=== PATIENT | female | born 1960 | race Caucasian/White ===

== ENCOUNTER 2020-12-27 08:22 | Outpatient (REF) | payer OTHER, SELFPAY ==
--- NOTE | 2020-12-27 17:26 | MHC.AU.ANR ---
Adult Audiological Evaluation Date of Visit: 12/27/20 Reason for Appointment: Audiological evaluation due to concern for tinnitus. Patient reports sudden onset tinnitus in the left ear only ~3 months ago. She states that has been constant since that time and sounds like cicadas. She denies any changes to her medical history at that time, but does note that she got the COVID-19 vaccine on August 27, 2020. She notes that she has some difficulty hearing in the presence of background noise, but overall feels she hears well. Does patient feel they have a hearing loss?: No Has hearing been tested previously?: Yes Previous Hearing Test Results: Tested in [place] 10+ years ago and told she has normal hearing. Results not available for review. Hearing Handicap Inventory: HHIE SCORE: 2 Based on HHIE score, patient has: No perceived hearing handicap Ear History: Family History of Hearing Loss?: Yes: Parents Bothersome Tinnitus/Ringing/Noises in Ears: Left Ear Medical History: Medical History (Other): Appendectomy 1979, fissure repair 1983, gallbladder removal 1992, rhinoplasty 1996, bariatric surgery 2010 Otoscopy: Right Ear: Unremarkable Left Ear: Unremarkable Tympanometry: Tympanometry performed due to: To assess integrity of the middle ear system Right Ear: Normal Middle Ear System (Type A) Left Ear: Normal Middle Ear System (Type A) Hearing Evaluation: Transducer(s) Used: Insert Earphones, Bone Conduction Method: Conventional Audiometry Stimuli Used: Pure Tones Right Ear: Description of Hearing: Normal hearing from 250-3000 Hz, sloping to a mild sensorineural hearing loss at 4000 Hz, and rising to normal hearing 6939-9199 Hz. Left Ear: Description of Hearing: Normal hearing from 250-6000 Hz, sloping to a mild hearing loss at 8000 Hz. Speech Recognition Threshold (SRT): Method Used: Monitored Live Voice Stimuli Used: Spondee Words Right Ear: 15 dBHL Left Ear: 10 dBHL Word Discrimination: Method: Recorded Lists Word Lists Used: NU-6 Right Ear: 100% at 55 dBHL Left Ear: 100% at 50 dBHL QuickSIN: 0 dB SNR loss when presented binaurally at 60 dBHL, indicating normal speech in noise understanding abilities. Recommendations: Audiological re-evaluation if changes are noted. Audiological re-evaluation in one year. Amplification is not warranted at this time. Diagnosis: Primary Diagnosis: H90.3 Bilateral Sensorineural Hearing Loss Secondary Diagnosis: H93.12 Tinnitus, Left Ear Services Performed: Services Performed: Comprehensive Audiological Evaluation (CPT 60487) Tympanometry (CPT 25577) Unlisted Otorhinolaryngological Service or Procedure (CPT 59740) Signature: Provider: Reba Membreno, CCC-A
== END 2020-12-27 08:23 | disposition home or self-care (01) ==
LOC: HO.SH 08:22
PROVIDERS: Visit Provider Family Medicine
DX: H90.3 Sensorineural hearing loss, bilateral (principal); H93.12 Tinnitus, left ear
CPT/HCPCS: 92557; 92567; 92700

== ENCOUNTER 2021-05-18 19:40 | Inpatient (IN) | payer OTHER, SELFPAY ==
[2021-05-18 20:08] VITALS: BP 173/101; PULSE 87; RESP 20; TEMP 36.3; O2SAT 100; BMI 30.6
--- NOTE | 2021-05-18 20:35 | ECG_ITS ---
Test Reason : overdose Blood Pressure : / mmHG Vent. Rate : 094 BPM Atrial Rate : 094 BPM P-R Int : 162 ms QRS Dur : 088 ms QT Int : 320 ms P-R-T Axes : 025 012 -79 degrees QTc Int : 400 ms Normal sinus rhythm Cannot rule out Anteroseptal infarct , age undetermined Abnormal ECG No previous ECGs available Referred By: Connor Petersen Electronically Signed By:Colt Walden
--- NOTE | 2021-05-18 20:52 | MHC.CARE ---
CARE Team is aware to pt ingested overdose as a suicide attempt. Consult CARE Team when pt is medically cleared for assessment.
[2021-05-18] MEDS: Activated charcoaL 50 GM/240 ML ORAL.SUSP PO (20:55)
[2021-05-18] MEDS: 0.9 % Sodium Chloride 1,000 ML 999 ML IV ×3 (20:58→23:05)
[2021-05-18 21:02] VITALS: BP 149/89; PULSE 97; RESP 16; TEMP 37.1
[2021-05-18 21:14] LABS: MANUAL DIFF FLAG NO
[2021-05-18 21:17] LABS: Basophils Percent Auto 0.3 % (0-2); Eosinophils Absolute Auto 0.1 X10*3/uL (0.0-0.4); Eosinophils Percent Auto 1.2 % (0-4); Hematocrit 39.5 % (37.0-47.0); Hemoglobin 13.3 g/dl (12.0-16.0); Imm Gran Abs Auto 0.02 X10*3/uL (0.00-0.03); Imm Gran Pct Auto 0.3 % (0.0-0.4); Lymphocytes Absolute Auto 0.6 X10*3/uL (1.2-4.9); Lymphocytes Percent Auto 9.6 % (20-40); Mean Corpuscular HGB Conc 33.7 g/dl (31.0-35.0); Mean Corpuscular Hemoglobin 31.3 pg (27.0-33.0); Mean Corpuscular Volume 92.9 fL (80.0-98.0); Mean Platelet Volume 10.5 fL (9.4-12.3); Monocytes Absolute Auto 0.3 X10*3/uL (0.1-1.2); Monocytes Percent Auto 5.2 % (2-11); Neutrophils Absolute Auto 5.5 x10*3/uL (2.0-8.3); Neutrophils Percent Auto 83.4 % (45-73); Platelet Count 165 X10*3/uL (160-400); Red Blood Count 4.25 X10*6/uL (4.20-5.50); Red Cell Distribution Width 12.6 % (11.0-16.0); White Blood Count 6.6 X10*3/uL (4.8-10.8)
[2021-05-18 21:24] LABS: INTERNATIONAL NORM RATIO 0.9 (0.9-1.1); Prothrombin Time 10.2 SEC (9.9-13.0)
[2021-05-18 21:26] LABS: Partial Thromboplastin Time 32.7 SEC (24.1-38.0)
[2021-05-18 21:29] LABS: Ethanol 161 mg/dL
[2021-05-18 21:38] LABS: Alanine Aminotransferase 19 U/L (0-31); Albumin Level 4.2 g/dL (3.5-5.0); Alkaline Phosphatase 76 U/L (39-117); Anion Gap 15 (12-20); Aspartate Amino Transferase 32 U/L (5-31); Bilirubin Direct 0.2 mg/dL (0.0-0.5); Bilirubin Total 0.2 mg/dL (0.0-1.0); Blood Urea Nitrogen 14 mg/dL (9-16); Carbon Dioxide 22 mmol/L (22-29); Chloride 108 mmol/L (96-108); Creatinine Clr Calc Pharmacy 83.4; Estimated Glomerular Filt Rate > 60; Glucose Random 105 mg/dL (60-115); Potassium 4.9 mmol/L (3.3-5.1); Sodium 140 mmol/L (135-145); Total Protein 7.2 g/dL (6.5-8.0)
[2021-05-18 21:57] LABS: HCG Quantitative 4 mIU/mL
[2021-05-18 22:03] LABS: Amphetamine Screen Urine Not Detected (Not Detect); Barbiturates, Urine Not Detected (Not Detect); Benzodiazepines Screen Urine Not Detected (Not Detect); Cannabinoid Screen Urine Not Detected (Not Detect); Cocaine Screen Urine Not Detected (Not Detect); Fentanyl, urine Not Detected (Not Detect); Opiate Screen Urine Not Detected (Not Detect); Phencyclidine Screen Urine Not Detected (Not Detect)
--- NOTE | 2021-05-18 22:07 | ED_ITS ---
HPI - Overdose General Chief Complaint: Overdose Stated Complaint: SI w/ OD attempt Time Seen by Provider: 05/18/21 22:46 Source: patient Mode of arrival: ambulatory Limitations: no limitations History of Present Illness HPI Narrative: 60-year-old female presents to ED for suicide attempt with 30 pills 20 mg of paroxetine. patient states this occurred 45 minutes before coming to the ED. Patient states she was trying to kill herself due to depression. patient complaint is only nausea. Related Data Allergies Allergy/AdvReac Type Severity Reaction Status Date / Time mold Allergy Unknown Verified 05/18/21 20:08 Review of Systems Review of Systems: Yes all other systems are reviewed and are negative Constitutional: Constitutional: Reports as per HPI and Reports no additional constitutional complaints Eyes: Eyes: Reports as per HPI and Reports no additional eye complaints ENT: Reports system reviewed and no additional complaints, except as documented and Reports as per HPI Cardiovascular: Cardiovascular: Reports as per HPI and Reports no additional cardiovascular complaints Respiratory: Respiratory: Reports as per HPI and Reports no additional respiratory complaints Gastrointestinal: Gastrointestinal: Reports as per HPI and Reports no additional gastrointestinal complaints Genitourinary: Genitourinary: Reports no additional female genitourinary complaints and Reports as per HPI Musculoskeletal: Musculoskeletal: Reports no additional musculoskeletal co mplaints and Reports as per HPI Integumentary/Breasts: Skin/Breast: Reports system reviewed and no additional complaints, except as docu and Reports as per HPI Neurologic: Reports system reviewed and no additional complaints, except as documented and Reports as per HPI Psychiatric: Psychiatric: Reports no additional psychiatric complaints and Reports as per HPI Comments: overdose. [facility]. [facility] Social History Social History Advance Directives: No Advance Directives Information Provided: Yes Patient : No Physical Exam Vital Signs: Vital Signs: Last Vital Signs Temp 98.2 F 05/18/21 23:45 Pulse 93 05/19/21 01:57 Resp 16 05/19/21 01:57 BP 165/95 H 05/19/21 01:57 Pulse Ox 98 05/19/21 01:57 BMI result Body Mass Index 30.6 Const: General: cooperative, healthy appearing, comfortable, no acute distres s, well developed, alert, awake and Physically active Orientation/consciousness: patient oriented x3 HENMT: Head: Yes normal to inspection, Yes No palpable skull fracture present, Yes normocephalic and Yes atraumatic Eyes: General: appearance normal, both eyes and all related structures Neck: Neck: Yes normal visual inspection, Yes full ROM, Yes no lymphadenopathy, Yes no meningeal signs, Yes trachea midline, Yes supple, No anterior neck swelling and No tender Chest: Chest palpation & inspection: normal inspection of the chest and normal palpation of entire chest wall Resp: Effort & Inspection: normal respiratory effort and able to speak in complete sentences Auscultation: clear to auscultation bilaterally Cardio: Jugular venous distension: no JVD Heart sounds: S1 normal heart sound present and S2 normal heart sound present GI: Inspection: Yes normal to inspection and No abdominal wall ecchymosis Palpation (GI): Soft to palpation, not firm, nontender, no guarding and not rigid : General: No CVA tenderness and Yes no CVA tenderness Back/Spine/Pelvis: Back: no CVA tenderness, No CVA tenderness and No back tenderness Neuro: General: patient oriented x3, gait normal, no meningeal signs and CN's II-XI intact bilaterally Cranial nerves: Yes CN's II-XII intact bilaterally Extrem: General: Yes normal to inspection and Yes full ROM Psych: Appearance: grossly normal, well kempt and not disheveled Course Course Course Narrative: Patient presently vital signs stable. Patient given charcoal immediately labs EKG ordered fluids ordered. Will contact poison Control. Reevaluation(s) Reevaluation #1: Nurse Tirado spoke with poison Control who states patient EKG should be repeated after 4 hours and patient should be watched in the ED for at least 8 hours since ingestion hours and if everything comes back normal patient could be cleared medically. Time: 23:54 Reevaluation #2: Spoke with poison Control and they were informed patient repeat labs and EKG. They states patient should be evaluated until 04:00am and then patient will be medically cleared. Crisis management consult placed. Patient is alert oriented x3 Time: 02:06 MDM - Overdose MDM Narrative Medical decision making narrative: Overdose Lab Data Result diagrams: 05/18/21 21:10 05/19/21 01:12 Labs: Lab Results 05/18/21 05/18/21 05/18/21 Range/Units 21:10 21:10 21:10 WBC 6.6 (4.8-10.8) X10*3/uL RBC 4.25 (4.20-5.50) X10*6/uL Hgb 13.3 (12.0-16.0) g/dl Hct 39.5 (37.0-47.0) % MCV 92.9 (80.0-98.0) fL MCH 31.3 (27.0-33.0) pg MCHC 33.7 (31.0-35.0) g/dl RDW 12.6 (11.0-16.0) % Plt Count 165 (160-400) X10*3/uL MPV 10.5 (9.4-12.3) fL Immature Gran % (Auto) 0.3 (0.0-0.4) % Neut % (Auto) 83.4 H (45-73) % Lymph % (Auto) 9.6 L (20-40) % Clare % (Auto) 5.2 (2-11) % Eos % (Auto) 1.2 (0-4) % Baso % (Auto) 0.3 (0-2) % Lymph # (Auto) 0.6 L (1.2-4.9) X10*3/uL Clare # (Auto) 0.3 (0.1-1.2) X10*3/uL Eos # (Auto) 0.1 (0.0-0.4) X10*3/uL Baso # (Auto) 0.0 (0.0-0.2) X10*3/uL Abs Immat Gran (auto) 0.02 (0.00-0.03) X10*3/uL Absolute Neuts (auto) 5.5 (2.0-8.3) x10*3/uL Absolute Nucleated RBC 0.000 (0.0-0.012) X10*3/uL Nucleated RBC % (auto) 0.0 (0.0-0.2) /100WBC PT 10.2 (9.9-13.0) SEC INR 0.9 (0.9-1.1) APTT 32.7 (24.1-38.0) SEC Sodium 140 (135-145) mmol/L Potassium 4.9 (3.3-5.1) mmol/L Chloride 108 (96-108) mmol/L Carbon Dioxide 22 (22-29) mmol/L Anion Gap 15 (12-20) BUN 14 (9-16) mg/dL Creatinine 0.83 (0.5-1.4) mg/dL Estim Creat Clear Calc 83.4 Estimated GFR > 60 Random Glucose 105 (60-115) mg/dL Calcium 9.0 (8.4-10.2) mg/dL Magnesium (1.6-2.6) mg/dL Total Bilirubin 0.2 (0.0-1.0) mg/dL Direct Bilirubin 0.2 (0.0-0.5) mg/dL AST 32 H (5-31) U/L ALT 19 (0-31) U/L Alkaline Phosphatase 76 (39-117) U/L Total Protein 7.2 (6.5-8.0) g/dL Albumin 4.2 (3.5-5.0) g/dL Beta HCG, Quant 4 mIU/mL Salicylates < 5.0 L (15-30) mg/dL Urine Opiates Screen (Not Detect) Urine Fentanyl Screen (Not Detect) Acetaminophen < 1 (<30) mcg/mL Ur Barbiturates Screen (Not Detect) Ur Phencyclidine Scrn (Not Detect) Ur Amphetamines Screen (Not Detect) U Benzodiazepines Scrn (Not Detect) Urine Cocaine Screen (Not Detect) U Marijuana (THC) Screen (Not Detect) Ethyl Alcohol mg/dL 05/18/21 05/18/21 05/19/21 Range/Units 21:10 21:38 01:12 WBC (4.8-10.8) X10*3/uL RBC (4.20-5.50) X10*6/uL Hgb (12.0-16.0) g/dl Hct (37.0-47.0) % MCV (80.0-98.0) fL MCH (27.0-33.0) pg MCHC (31.0-35.0) g/dl RDW (11.0-16.0) % Plt Count (160-400) X10*3/uL MPV (9.4-12.3) fL Immature Gran % (Auto) (0.0-0.4) % Neut % (Auto) (45-73) % Lymph % (Auto) (20-40) % Clare % (Auto) (2-11) % Eos % (Auto) (0-4) % Baso % (Auto) (0-2) % Lymph # (Auto) (1.2-4.9) X10*3/uL Clare # (Auto) (0.1-1.2) X10*3/uL Eos # (Auto) (0.0-0.4) X10*3/uL Baso # (Auto) (0.0-0.2) X10*3/uL Abs Immat Gran (auto) (0.00-0.03) X10*3/uL Absolute Neuts (auto) (2.0-8.3) x10*3/uL Absolute Nucleated RBC (0.0-0.012) X10*3/uL Nucleated RBC % (auto) (0.0-0.2) /100WBC PT 10.7 (9.9-13.0) SEC INR 0.9 (0.9-1.1) APTT 31.3 (24.1-38.0) SEC Sodium (135-145) mmol/L Potassium (3.3-5.1) mmol/L Chloride (96-108) mmol/L Carbon Dioxide (22-29) mmol/L Anion Gap (12-20) BUN (9-16) mg/dL Creatinine (0.5-1.4) mg/dL Estim Creat Clear Calc Estimated GFR Random Glucose (60-115) mg/dL Calcium (8.4-10.2) mg/dL Magnesium (1.6-2.6) mg/dL Total Bilirubin (0.0-1.0) mg/dL Direct Bilirubin (0.0-0.5) mg/dL AST (5-31) U/L ALT (0-31) U/L Alkaline Phosphatase (39-117) U/L Total Protein (6.5-8.0) g/dL Albumin (3.5-5.0) g/dL Beta HCG, Quant mIU/mL Salicylates (15-30) mg/dL Urine Opiates Screen Not Detected (Not Detect) Urine Fentanyl Screen Not Detected (Not Detect) Acetaminophen (<30) mcg/mL Ur Barbiturates Screen Not Detected (Not Detect) Ur Phencyclidine Scrn Not Detected (Not Detect) Ur Amphetamines Screen Not Detected (Not Detect) U Benzodiazepines Scrn Not Detected (Not Detect) Urine Cocaine Screen Not Detected (Not Detect) U Marijuana (THC) Screen Not Detected (Not Detect) Ethyl Alcohol 161 mg/dL 05/19/21 05/19/21 Range/Units 01:12 01:12 WBC (4.8-10.8) X10*3/uL RBC (4.20-5.50) X10*6/uL Hgb (12.0-16.0) g/dl Hct (37.0-47.0) % MCV (80.0-98.0) fL MCH (27.0-33.0) pg MCHC (31.0-35.0) g/dl RDW (11.0-16.0) % Plt Count (160-400) X10*3/uL MPV (9.4-12.3) fL Immature Gran % (Auto) (0.0-0.4) % Neut % (Auto) (45-73) % Lymph % (Auto) (20-40) % Clare % (Auto) (2-11) % Eos % (Auto) (0-4) % Baso % (Auto) (0-2) % Lymph # (Auto) (1.2-4.9) X10*3/uL Clare # (Auto) (0.1-1.2) X10*3/uL Eos # (Auto) (0.0-0.4) X10*3/uL Baso # (Auto) (0.0-0.2) X10*3/uL Abs Immat Gran (auto) (0.00-0.03) X10*3/uL Absolute Neuts (auto) (2.0-8.3) x10*3/uL Absolute Nucleated RBC (0.0-0.012) X10*3/uL Nucleated RBC % (auto) (0.0-0.2) /100WBC PT (9.9-13.0) SEC INR (0.9-1.1) APTT (24.1-38.0) SEC Sodium 141 (135-145) mmol/L Potassium 3.9 D (3.3-5.1) mmol/L Chloride 112 H (96-108) mmol/L Carbon Dioxide 19 L (22-29) mmol/L Anion Gap 14 (12-20) BUN 11 (9-16) mg/dL Creatinine 0.72 (0.5-1.4) mg/dL Estim Creat Clear Calc 96.1 Estimated GFR > 60 Random Glucose 116 H (60-115) mg/dL Calcium 7.9 L D (8.4-10.2) mg/dL Magnesium 1.8 (1.6-2.6) mg/dL Total Bilirubin 0.4 (0.0-1.0) mg/dL Direct Bilirubin (0.0-0.5) mg/dL AST 28 (5-31) U/L ALT 18 (0-31) U/L Alkaline Phosphatase 66 (39-117) U/L Total Protein 6.2 L (6.5-8.0) g/dL Albumin 3.8 (3.5-5.0) g/dL Beta HCG, Quant mIU/mL Salicylates < 5.0 L (15-30) mg/dL Urine Opiates Screen (Not Detect) Urine Fentanyl Screen (Not Detect) Acetaminophen < 1 (<30) mcg/mL Ur Barbiturates Screen (Not Detect) Ur Phencyclidine Scrn (Not Detect) Ur Amphetamines Screen (Not Detect) U Benzodiazepines Scrn (Not Detect) Urine Cocaine Screen (Not Detect) U Marijuana (THC) Screen (Not Detect) Ethyl Alcohol 49 mg/dL ECG Data Interpretation: EKG 1: Normal sinus rhythm. Reticular 94. WA interval 162. QRS 88. QTC 400. Negative STEMI. EKG 2; normal sinus rhythm. Ventricular rate 92. Parents till 154. QRS 92. QTC 460. Discharge Plan Discharge Clinical Impression: Drug overdose Patient Disposition: Still a Patient
[2021-05-18 22:52] LABS: Acetaminophen LAB < 1 mcg/mL (<30); Salicylate < 5.0 mg/dL (15-30)
[2021-05-18 23:45] VITALS: BP 149/89; PULSE 93; RESP 16; TEMP 36.8; O2SAT 98
--- NOTE | 2021-05-19 00:39 | ECG_ITS ---
Test Reason : MEDICAL CLEARENCE Blood Pressure : / mmHG Vent. Rate : 091 BPM Atrial Rate : 091 BPM P-R Int : 148 ms QRS Dur : 090 ms QT Int : 394 ms P-R-T Axes : 029 015 062 degrees QTc Int : 484 ms Normal sinus rhythm Septal infarct , age undetermined Abnormal ECG No previous ECGs available Referred By: Connor Petersen Electronically Signed By:REBECCA MARTINEZ
[2021-05-19 01:28] LABS: INTERNATIONAL NORM RATIO 0.9 (0.9-1.1); Prothrombin Time 10.7 SEC (9.9-13.0)
[2021-05-19 01:31] LABS: Partial Thromboplastin Time 31.3 SEC (24.1-38.0)
[2021-05-19 01:36] LABS: Ethanol 49 mg/dL
[2021-05-19 01:48] LABS: Acetaminophen LAB < 1 mcg/mL (<30); Alanine Aminotransferase 18 U/L (0-31); Albumin Level 3.8 g/dL (3.5-5.0); Alkaline Phosphatase 66 U/L (39-117); Anion Gap 14 (12-20); Aspartate Amino Transferase 28 U/L (5-31); Bilirubin Total 0.4 mg/dL (0.0-1.0); Blood Urea Nitrogen 11 mg/dL (9-16); Calcium 7.9 mg/dL (8.4-10.2); Carbon Dioxide 19 mmol/L (22-29); Chloride 112 mmol/L (96-108); Creatinine Clr Calc Pharmacy 96.1; Estimated Glomerular Filt Rate > 60; Glucose Random 116 mg/dL (60-115); Magnesium 1.8 mg/dL (1.6-2.6); Potassium 3.9 mmol/L (3.3-5.1); Salicylate < 5.0 mg/dL (15-30); Sodium 141 mmol/L (135-145); Total Protein 6.2 g/dL (6.5-8.0)
[2021-05-19 01:57] VITALS: BP 165/95; PULSE 93; RESP 16; O2SAT 98
[2021-05-19 03:08] VITALS: BP 159/83; PULSE 93; RESP 15; O2SAT 97
[2021-05-19 03:26] LABS: COVID-19 Test Negative (Negative); IDNOW Serial# 55D5AD1C
[2021-05-19 03:42] VITALS: PULSE 87; TEMP 37.1
--- NOTE | 2021-05-19 05:27 | PC.NURSE ---
Patient was transferred to ED POD at 0330, gait unsteady but secured, slept adequate, asymptomatic of Seratonin syndrome at this time, VSS, per report patient was cleared by poison control, care team consult ordered pending screening in the morning, alert and oriented x 4, behavior appropriate and cooperative, med rec completed but on hold, will continue to monitor.
--- NOTE | 2021-05-19 08:49 | PC.NURSE ---
alert, speech clear, steady gait, aware of care plan and pending CARE team eval, pleasant and cooperative,
[2021-05-19 15:20] VITALS: BP 155/70; PULSE 82; RESP 20; TEMP 36.9; O2SAT 99
--- NOTE | 2021-05-19 18:54 | MHC.CARE ---
Pt evaluated by CARE, disposition is for inpt psychiatric admission. Sect 12a signed and in pt's chart. She will board in the [facility] pod pending facility placement.
[2021-05-20 03:34] VITALS: BP 166/82; PULSE 78; RESP 18; TEMP 37.6; O2SAT 98
--- NOTE | 2021-05-20 05:46 | PC.NURSE ---
Patient slept through the night, no distress observed/reported, behavior appropriate, appetite adequate, patient's disposition per Care Team is section 12 inpatient bed search, no update on bed search at this time, will continue to monitor.
--- NOTE | 2021-05-20 08:20 | PC.NURSE ---
pt alert resting quietly in bed, breakfast given. no complaints. will continue to monitor.
--- NOTE | 2021-05-20 12:40 | PC.NURSE ---
pt up to use restroom, requested remote to change tv in her room, pt currently in bed resting quietly. will continue to monitor.
[2021-05-20 16:54] VITALS: BP 153/80; PULSE 75; RESP 18; TEMP 36.3; O2SAT 98
[2021-05-20 23:16] VITALS: BP 159/85; PULSE 71; RESP 16; TEMP 37.1; O2SAT 100
--- NOTE | 2021-05-21 05:15 | PC.NURSE ---
Patient slept intermittently, woke up few times by unit commotion, patient not happy with loud noises requested for discharge, behavior appropriate, patient's disposition is section 12 inpatient bed search per care team, will continue to monitor.
--- NOTE | 2021-05-21 07:13 | PC.NURSE ---
patient appears to remain asleep at present respirations are even and unlabored patient appears in no distress
[2021-05-21 11:58] VITALS: BP 142/90; PULSE 82; TEMP 37.3; O2SAT 100
--- NOTE | 2021-05-21 16:39 | HO.PSYADMNOT ---
Documented by User: Monet Carrasquillo NP 05/23/21 21:58 HPI Date of Service: 05/21/21 Chief Complaint: SI Sources of Information: patient interviewed, chart reviewed and crisis/core team assessment reviewed HPI Subjective Notes: Gomez Warning and Conditional Voluntary Healthcare Proxy: No Guardianship: No Medical Problems Affecting Mental Status: No Narrative: Pt is a 60 y.o. female who presented to [facility] 05/18/21 due to suicide attempt, took 30 pills of 20 mg of paroxetine 45 minutes before coming to the ED. 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 Her sister, niece, and their two dogs are visiting her and her mother in their small condo. Pt also disclosed increased alcohol use over the pandemic and was inebriated at the time of the OD. BAL 161 on arrival to ED. Tox screen is otherwise negative. Per CARE team eval, prior to the OD, pt had a negative interaction with her niece while they were cleaning up after dinner, which resulted in her niece snapping at her. She reported that she went into her room, saw the bottle of her medications and impulsively took them.? I evaluated the pt this evening and upon interview she reports she overdosed after ?a long day,? had been cooking and said she was arguing with her sister and her niece told her ?you dont talk to my mother in that tone of voice.? Says she remembers taking the paxil but her mom says she also left a suicide note; pt states she has ?no recollection of putting a purposeful thought to anything in that moment, i?m so surprised I did what I did.? Denies hx of previous self harm behaviors or suicide attempts. Pt reports some belt weaver fatigue and has a ?general angst about my own future,? as she says her peers all started announcing their retirements and she is ?afraid for my own future.? Says she has some financial stress. Also reports feeling ?concerned with the country? and worries that ?politicians tread on the basic foundations of our country, it?s frightening to me, all this stuff built up.? Sleep has been poor, attributes this to anxiety, sleeps 4-6 hours at night, energy is ?okay? during the day, feels ?drained'' at night. Reports long hx of difficulty with sleep, ?I have a hard time turning my brain off at night.? Appetite is okay. Denies hx of impulsivity or risk taking behaviors. No hx of manic or hypomanic episodes endorsed.?No psychotic sx. Currently denies SI/SIB upon inquiry and says she feels safe, remorseful for her overdose. Denies issues with anger or agitation. Past Psychiatric History: -No hx of previous psych admissions. Remote hx of OP counseling in 1980 and again in 2005 to process the grief from failed adoption (did this for 9 mo, helpful). -PCP prescribes paxil x 18 yrs for PMDD sx (?mood swings and perimenopause?). Medical Evaluation Reviewed: Yes [facility] Surgical History (Updated 05/22/21 @ 03:32 by Sidra Krishna RN) H/O gastric bypass Narrative: -Hx gastric bypass 10 years ago Family History: -Maternal/ paternal family hx of anxiety and depression. Sister- attempted suicide in 1979 when the pt was in her freshman year of college, alcohol use disorder, PTSD. Dad- ?crippling? anxiety and depression. Maternal uncle and and paternal aunt completed suicide. 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 Pt was raised by her mother and father with her older brother and younger sister. Her father was Sinhala and her mother is [place]. Pt also took care of her father, who 5 years ago. Substance History: -ETOH: Pt has been drinking 3-4 glasses of wine a night, which has increased from a few glasses per week over the pandemic. Trauma History: -Per chart, pt spent several years trying to have/ adopt a child, which was unsuccessful. Her last attempt at adopting a child was when she went to [facility] for an international adoption approximately 20 years ago, which unfortunately fell through. Diagnostics Vital Signs (24Hr): Vital Signs - 24 hr 05/21/21 11:58 05/21/21 20:01 Temperature 99.2 F 97.9 F Pulse Rate 82 83 Respiratory Rate 18 Blood Pressure 142/90 H 155/81 H Pulse Oximetry 100 100 BMI result Body Mass Index 30.6 Labs Results: 05/18/21 21:10 05/19/21 01:12 Meds/Allergies Meds Home Medications Acetaminophen (Acetaminophen 325 Mg Tablet) 650 mg PO Q6H PRN PRN Reason: Headache/Pain Mild Scale (1-3) Al Hydroxide/Mg Hydroxide (Magnesium Hydrox/Alum Hydrox 30 Ml Oral.Susp) 30 ml PO Q6H PRN PRN Reason: Heartburn/Nausea Folic Acid (Folic Acid 1 Mg Tablet) 1 mg PO DAILY [facility] Last Admin: 05/24/21 09:06 Dose: 1 mg Documented by: Hydroxyzine HCl (Hydroxyzine Hcl 25 Mg Tablet) 25 mg PO Q6H PRN PRN Reason: Anxiety Last Admin: 05/23/21 20:41 Dose: 25 mg Documented by: Magnesium Hydroxide (Milk Of Magnesia 30 Ml Oral.Susp) 30 ml PO DAILY PRN PRN Reason: Constipation Paroxetine HCl (Paroxetine Hcl 30 Mg Tablet) 30 mg PO BEDTIME [facility] Last Admin: 05/23/21 20:40 Dose: 30 mg Documented by: Thiamine HCl (Thiamine Hcl 100 Mg Tablet) 100 mg PO DAILY [facility] Last Admin: 05/24/21 09:06 Dose: 100 mg Documented by: Trazodone HCl (Trazodone Hcl 50 Mg Tablet) 50 mg PO BEDTIME PRN PRN Reason: Insomnia Last Admin: 05/23/21 20:41 Dose: 50 mg Documented by: Allergies Allergies Allergy/AdvReac Type Severity Reaction Status Date / Time mold Allergy Unknown Verified 05/18/21 20:08 Mental Status Exam Mental Status Exam Narrative: A&O. Well groomed, good hygiene, overweight. Good eye contact, attentive. No Tics or Tremors. No abnormal involuntary movements. Calm, cooperative, engaged. Non-pressured speech, spontaneous with regular rate and rhythm, normal volume and prosody. No prolonged speech latency or dysarthria. Mood is ?stressed,? affect is appropriate, overall euthymic. Denies SI/SIB/HI upon inquiry. Denies A/VH or delusional thought content. Thoughts are coherent, organized, goal oriented. No known cognitive or memory impairment. Insight/ Judgment fair and adequate. Assessment & Plan Assessment & Plan (1) PÉREZ (generalized anxiety disorder): Status: Acute Code(s): F41.1 - Generalized anxiety disorder (2) Alcohol use disorder, moderate, dependence: Status: Acute Code(s): F10.20 - Alcohol dependence, uncomplicated (3) Adjustment disorder with mixed anxiety and depressed mood: Status: Acute Code(s): F43.23 - Adjustment disorder with mixed anxiety and depressed mood Assessment and Plan: Pt is a 60 y.o. female who presented to [facility] ED s/p overdose on prescribed paxil as a suicide attempt while under the influence of alcohol. Pt disclosed increased drinking behavior over the pandemic, now consuming up to 4 glasses of wine a night. She has been stable on paxil 20 mg for years, however recently reports worsening anxiety in context of increased psychosocial stressors and she has been feeling overwhelmed, has been neglecting her self care and not engaging in adaptive coping skills. Pt is voluntary for treatment. She reports she has not had her paxil in the ED, has not taken it since Thursday, noticed some withdrawal sx. Says her ?overall personal goal is to live life with as few medications as possible? and says she wants to find other ways to deal with the anxiety. However, pt acknowledges that paxil 20 mg has been helpful in keeping her stable over the years. Has remote hx of OP psych services, no hx of IPLOC, PHP, or CCS. Discussed that anxiety is a chronic condition and she may not only benefit from continuing paxil but from increasing the dose, as she is on a low dose and reports issues with anxiety, mood stability, and sleep. Pt prefers to stay on paxil, as opposed to switch to a different SSRI, due to past benefit for almost 20 years. Will re-start paxil at 20 mg and increase to 30 mg over course of hospitalization. Pt denies alcohol withdrawal sx. Will order CIWA for precaution and place consult to recovery team. Monitor response to medications. Monitor for safety in the milieu. Discharge on stabilization. Patient seen. Chart reviewed. Discussed with team. Obtain collateral contact info?as needed Patient educated on: medication risk/benefits and therapeutic strategies Reason for continued inpatient stay Substantial Risk for: harm to self, rapid decompensation and med/psych decompensation Documented by User: Brody Chu MD 05/24/21 12:06 HPI Chief Complaint: SI PMFSH Surgical History (Updated 05/22/21 @ 03:32 by Sidra Krishna RN) H/O gastric bypass Diagnostics Labs Results: 05/18/21 21:10 05/19/21 01:12 Meds/Allergies Meds Home Medications Acetaminophen (Acetaminophen 325 Mg Tablet) 650 mg PO Q6H PRN PRN Reason: Headache/Pain Mild Scale (1-3) Al Hydroxide/Mg Hydroxide (Magnesium Hydrox/Alum Hydrox 30 Ml Oral.Susp) 30 ml PO Q6H PRN PRN Reason: Heartburn/Nausea Folic Acid (Folic Acid 1 Mg Tablet) 1 mg PO DAILY [facility] Last Admin: 05/24/21 09:06 Dose: 1 mg Documented by: Hydroxyzine HCl (Hydroxyzine Hcl 25 Mg Tablet) 25 mg PO Q6H PRN PRN Reason: Anxiety Last Admin: 05/23/21 20:41 Dose: 25 mg Documented by: Magnesium Hydroxide (Milk Of Magnesia 30 Ml Oral.Susp) 30 ml PO DAILY PRN PRN Reason: Constipation Paroxetine HCl (Paroxetine Hcl 30 Mg Tablet) 30 mg PO BEDTIME [facility] Last Admin: 05/23/21 20:40 Dose: 30 mg Documented by: Thiamine HCl (Thiamine Hcl 100 Mg Tablet) 100 mg PO DAILY [facility] Last Admin: 05/24/21 09:06 Dose: 100 mg Documented by: Trazodone HCl (Trazodone Hcl 50 Mg Tablet) 50 mg PO BEDTIME PRN PRN Reason: Insomnia Last Admin: 05/23/21 20:41 Dose: 50 mg Documented by: Allergies Allergies Allergy/AdvReac Type Severity Reaction Status Date / Time mold Allergy Unknown Verified 05/18/21 20:08 Assessment & Plan Assessment & Plan (1) PÉREZ (generalized anxiety disorder): Status: Acute Code(s): F41.1 - Generalized anxiety disorder (2) Alcohol use disorder, moderate, dependence: Status: Acute Code(s): F10.20 - Alcohol dependence, uncomplicated (3) Adjustment disorder with mixed anxiety and depressed mood: Status: Acute Code(s): F43.23 - Adjustment disorder with mixed anxiety and depressed mood
--- NOTE | 2021-05-21 17:19 | PC.ADMIT ---
Nursing admission note: 60 year old female DX: Major depressive disorder, recurrent, moderate. Patient easily engaged, presented with good eye contact, good attn to ADL, dressed in hospital attire. Affect is varied. Thoughts clear, linear and organized. No reported perceptual disturbances, no overt psychosis or expressed delusions. Presented to [facility] ED following overdose on approx 30/20 mg tabs of Paxil. Reports overdose was impulsive following negative interaction with sister and niece. Patient reports she has been care taking her mother, in addition to responsibilities of managing the care and estates of other family members. Patient endorses depressed mood, denies SI/HI plan or intent at this time. Reports avolition, anhedonia, increased isolation. Reports poor sleep, difficulty falling and maintaining sleep. Denies appetite disturbances. Denies medical problems. Gastric bypass 10 years ago. Allergy to mold. COVID negative. BAL 161 on admission. Denies drug use. No previous in patient hospitalizations, no current out patient providers. Recent increase in alcohol use, drinks daily approx 3 glasses of wine. Oriented to unit, signed CATHY. Orders obtained, placed on [facility] protocol. Unit safety checks implemented. See nursing admission assessment for details, Crisis evaluation for complete details. Placed on unit safety checks.
[2021-05-21 20:01] VITALS: BP 155/81; PULSE 83; RESP 18; TEMP 36.6; O2SAT 100
[2021-05-21] MEDS: PARoxetine HCL 20 MG TABLET PO (21:01)
[2021-05-21] MEDS: traZODone HCL 50 MG TABLET PO (23:56)
[2021-05-22 08:49] VITALS: BP 147/67; PULSE 84; RESP 16; TEMP 35.8; O2SAT 100
[2021-05-22 09:11] LABS: Magnesium 2.1 mg/dL (1.6-2.6)
[2021-05-22 09:34] LABS: Free T4 (Free Thyroxine) 0.94 ng/dL (0.71-1.85); Thyroid Stimulating Hormone 0.53 uIU/mL (0.32-4.0)
[2021-05-22 09:48] LABS: Folate 14.4 ng/mL (> or = 4.0); Vitamin B12 150 pg/mL (200-900)
[2021-05-22] MEDS: Thiamine HCL 100 MG TABLET PO (11:04)
[2021-05-22] MEDS: Folic Acid 1 MG TABLET PO (11:04)
[2021-05-22 16:41] LABS: Iron 39 mcg/dL (30-160); Percent Iron Saturation 9 % (15-50); Total Iron Binding Capacity 412 mcg/dL (228-428); Unsaturated Iron Binding 373 ug/dL
--- NOTE | 2021-05-22 18:58 | P.PNPSI_ITS ---
Subjective Subjective Date of Service: 05/22/21 Reason For Visit: SI Subjective Notes: Gomez Warning and Conditional Voluntary Interim History: Patient seen and discussed with team. Patient evaluated this morning and upon interview she reports she is doing okay. Says she slept pretty well and sleep has been a lot better than days before, utilized PRN trazodone and ear plugs. Continues to endorse situational anxiety but otherwise says she is feeling pretty good. States she has a hx of borderline anemia, asks for iron level to be drawn. In the milieu, patient is safe and appropriate in behavior. Denies SI/SIB/HI upon inquiry. Denies irritability or assaultive ideation. Says she feels safe. Medication Compliance: Yes Side effects from medications: No Attending Groups: Yes Review of Systems Acute medical concerns: No Medical Review of Systems: unchanged Mental Status Exam Mental Status Exam Narrative: A&O. Well groomed, good hygiene, overweight. Good eye contact, attentive. No Tics or Tremors. No abnormal involuntary movements. Calm, cooperative, engaged. Non-pressured speech, spontaneous with regular rate and rhythm, normal volume and prosody. No prolonged speech latency or dysarthria. Mood is ?pretty good,? affect is appropriate, overall euthymic. Denies SI/SIB/HI upon inquiry. Denies A/VH or delusional thought content. Thoughts are coherent, organized, goal oriented. No known cognitive or memory impairment. Insight/ Judgment fair and adequate. Diagnostics Vital Signs (24Hr): Vital Signs - 24 hr 05/22/21 22:04 05/23/21 08:30 Temperature 97.8 F 97.3 F Pulse Rate 83 81 Respiratory Rate 16 Blood Pressure 146/73 H 115/58 L Pulse Oximetry 100 100 BMI result Body Mass Index 30.6 Labs Results: 05/18/21 21:10 05/19/21 01:12 Labs: Laboratory Results - last 48 hr 05/22/21 05/22/21 05/22/21 08:20 08:20 16:19 Magnesium 2.1 Iron 39 TIBC 412 % Saturation 9 L Unsat Iron Binding 373 Vitamin B12 150 L Folate 14.4 TSH 0.53 Free T4 0.94 Medications Medications Current Medications Acetaminophen (Acetaminophen 325 Mg Tablet) 650 mg PO Q6H PRN PRN Reason: Headache/Pain Mild Scale (1-3) Al Hydroxide/Mg Hydroxide (Magnesium Hydrox/Alum Hydrox 30 Ml Oral.Susp) 30 ml PO Q6H PRN PRN Reason: Heartburn/Nausea Folic Acid (Folic Acid 1 Mg Tablet) 1 mg PO DAILY [facility] Last Admin: 05/23/21 08:59 Dose: 1 mg Documented by: Hydroxyzine HCl (Hydroxyzine Hcl 25 Mg Tablet) 25 mg PO Q6H PRN PRN Reason: Anxiety Magnesium Hydroxide (Milk Of Magnesia 30 Ml Oral.Susp) 30 ml PO DAILY PRN PRN Reason: Constipation Paroxetine HCl (Paroxetine Hcl 30 Mg Tablet) 30 mg PO BEDTIME [facility] Last Admin: 05/22/21 22:03 Dose: 30 mg Documented by: Thiamine HCl (Thiamine Hcl 100 Mg Tablet) 100 mg PO DAILY [facility] Last Admin: 05/23/21 08:59 Dose: 100 mg Documented by: Trazodone HCl (Trazodone Hcl 50 Mg Tablet) 50 mg PO BEDTIME PRN PRN Reason: Insomnia Last Admin: 05/22/21 23:51 Dose: 50 mg Documented by: Allergies Allergies Allergy/AdvReac Type Severity Reaction Status Date / Time mold Allergy Unknown Verified 05/18/21 20:08 Assessment & Plan Assessment & Plan (1) Adjustment disorder with mixed anxiety and depressed mood: Status: Acute Code(s): F43.23 - Adjustment disorder with mixed anxiety and depressed mood (2) Alcohol use disorder, moderate, dependence: Status: Acute Code(s): F10.20 - Alcohol dependence, uncomplicated (3) PÉREZ (generalized anxiety disorder): Status: Acute Code(s): F41.1 - Generalized anxiety disorder Assessment and Plan: Pt is a 60 y.o. female who presented to [facility] ED s/p overdose on prescribed paxil as a suicide attempt while under the influence of alcohol. Pt disclosed increased drinking behavior over the pandemic, now consuming up to 4 glasses of wine a night. She has been stable on paxil 20 mg for years, however recently reports worsening anxiety in context of increased psychosocial stressors and she has been feeling overwhelmed, has been neglecting her self care and not engaging in adaptive coping skills. Pt is voluntary for treatment. She reports she has not had her paxil in the ED, has not taken it since Thursday, noticed some withdrawal sx. Says her ?overall personal goal is to live life with as few medications as possible? and says she wants to find other ways to deal with the anxiety. However, pt acknowledges that paxil 20 mg has been helpful in keeping her stable over the years. Has remote hx of OP psych services, no hx of IPLOC, PHP, or CCS. Discussed that anxiety is a chronic condition and she may not only benefit from continuing paxil but from increasing the dose, as she is on a low dose and reports issues with anxiety, mood stability, and sleep. Pt prefers to stay on paxil, as opposed to switch to a different SSRI, due to past benefit for almost 20 years. Will re-start paxil at 20 mg and increase to 30 mg over course of hospitalization. Pt denies alcohol withdrawal sx. Will order CIWA for precaution and place consult to recovery team. 05/22: Pt reports positive benefit on PRN trazodone for sleep. She is back on paxil 20 mg, will increase to 30 mg QHS this evening to target sx of anxiety, as pt has been increasingly anxious with poor sleep, impulsivity, and overwhelmed. Monitor response to medications. Monitor for safety in the milieu. Discharge on stabilization. Patient seen. Chart reviewed. Discussed with team. Obtain collateral contact info?as needed I spent minutes with the patient and/or on the patient floor today, greater than?50% of which was spent counseling/coordinating care. Reason for contiued inpatient stay Substantial Risk for: med/psych decompensation
--- NOTE | 2021-05-22 19:58 | MHC.RECOVSUP ---
? Reason for consult:Recovery Support Team o ? ? ?Current location: 306-1? o ? ? ?Identified substance use concern: alcohol and prescription pills - Overdose ?Intervention: o Community resources provided o Harm reduction discussion ? Additional information:I was able to connect with pt and inform her of community resources and strategies to promote change. I also supported her with mentoring, positive affirmations and suggested coping skills and supportive tools for her to utilize in her daily routine. We also discussed pt. readiness to change along with harm reductions strategies. Pt was receptive, engaged and open minded to the suggestions. Care Team was notified.
[2021-05-22] MEDS: PARoxetine HCL 30 MG TABLET PO (22:03)
[2021-05-22] MEDS: traZODone HCL 50 MG TABLET PO ×2 (22:03→23:51)
[2021-05-22 22:04] VITALS: BP 146/73; PULSE 83; TEMP 36.6; O2SAT 100
--- NOTE | 2021-05-22 23:37 | PC.NURSE ---
B12, sat levels low
[2021-05-23 08:30] VITALS: BP 115/58; PULSE 81; RESP 16; TEMP 36.3; O2SAT 100
[2021-05-23] MEDS: Folic Acid 1 MG TABLET PO (08:59)
[2021-05-23] MEDS: Thiamine HCL 100 MG TABLET PO (08:59)
[2021-05-23 18:00] VITALS: BP 112/69; PULSE 80; RESP 14; TEMP 36.4; O2SAT 98
--- NOTE | 2021-05-23 18:58 | HO.PSYCHPN ---
Subjective Subjective Date of Service: 05/23/21 Reason For Visit: SI Interim History: Patient seen and discussed with team. Patient evaluated this morning and upon interview she reports she is doing well. She met with the recovery team and talked with them for a while, interested in OP therapy and discussed alcohol use disorder services at [facility]. Denies side effects or adverse effects on increased paxil dose. Says she would like to continue on trazodone PRN when she leaves the hospital, as this has been helpful for sleep while i'm adjusting. Says she feels safe. No questions or concerns. Wants to take pottery classes, as art has always been therapeutic for her. Future oriented and discussed increasing her self care. In the milieu, patient is safe and appropriate in behavior. Denies SI/SIB/HI upon inquiry. Denies irritability or assaultive ideation. Says she feels safe. Medication Compliance: Yes Side effects from medications: No Attending Groups: Yes Review of Systems Acute medical concerns: No Medical Review of Systems: unchanged Mental Status Exam Mental Status Exam Narrative: A&O. Well groomed, good hygiene, overweight. Good eye contact, attentive. No Tics or Tremors. No abnormal involuntary movements. Calm, cooperative, engaged. Non-pressured speech, spontaneous with regular rate and rhythm, normal volume and prosody. No prolonged speech latency or dysarthria. Mood is ?better,? affect is appropriate, overall euthymic. Denies SI/SIB/HI upon inquiry. Denies A/VH or delusional thought content. Thoughts are coherent, organized, goal oriented. No known cognitive or memory impairment. Insight/ Judgment fair and adequate. Diagnostics Vital Signs (24Hr): Vital Signs - 24 hr 05/22/21 22:04 05/23/21 08:30 Temperature 97.8 F 97.3 F Pulse Rate 83 81 Respiratory Rate 16 Blood Pressure 146/73 H 115/58 L Pulse Oximetry 100 100 BMI result Body Mass Index 30.6 Labs Results: 05/18/21 21:10 05/19/21 01:12 Labs: Laboratory Results - last 48 hr 05/22/21 05/22/21 05/22/21 08:20 08:20 16:19 Magnesium 2.1 Iron 39 TIBC 412 % Saturation 9 L Unsat Iron Binding 373 Vitamin B12 150 L Folate 14.4 TSH 0.53 Free T4 0.94 Medications Medications Current Medications Acetaminophen (Acetaminophen 325 Mg Tablet) 650 mg PO Q6H PRN PRN Reason: Headache/Pain Mild Scale (1-3) Al Hydroxide/Mg Hydroxide (Magnesium Hydrox/Alum Hydrox 30 Ml Oral.Susp) 30 ml PO Q6H PRN PRN Reason: Heartburn/Nausea Folic Acid (Folic Acid 1 Mg Tablet) 1 mg PO DAILY [facility] Last Admin: 05/23/21 08:59 Dose: 1 mg Documented by: Hydroxyzine HCl (Hydroxyzine Hcl 25 Mg Tablet) 25 mg PO Q6H PRN PRN Reason: Anxiety Magnesium Hydroxide (Milk Of Magnesia 30 Ml Oral.Susp) 30 ml PO DAILY PRN PRN Reason: Constipation Paroxetine HCl (Paroxetine Hcl 30 Mg Tablet) 30 mg PO BEDTIME FELECIA Last Admin: 05/22/21 22:03 Dose: 30 mg Documented by: Thiamine HCl (Thiamine Hcl 100 Mg Tablet) 100 mg PO DAILY [facility] Last Admin: 05/23/21 08:59 Dose: 100 mg Documented by: Trazodone HCl (Trazodone Hcl 50 Mg Tablet) 50 mg PO BEDTIME PRN PRN Reason: Insomnia Last Admin: 05/22/21 23:51 Dose: 50 mg Documented by: Allergies Allergies Allergy/AdvReac Type Severity Reaction Status Date / Time mold Allergy Unknown Verified 05/18/21 20:08 Assessment & Plan Assessment & Plan (1) Adjustment disorder with mixed anxiety and depressed mood: Status: Acute Code(s): F43.23 - Adjustment disorder with mixed anxiety and depressed mood (2) Alcohol use disorder, moderate, dependence: Status: Acute Code(s): F10.20 - Alcohol dependence, uncomplicated (3) PÉREZ (generalized anxiety disorder): Status: Acute Code(s): F41.1 - Generalized anxiety disorder Assessment and Plan: Pt is a 60 y.o. female who presented to [facility] ED s/p overdose on prescribed paxil as a suicide attempt while under the influence of alcohol. Pt disclosed increased drinking behavior over the pandemic, now consuming up to 4 glasses of wine a night. She has been stable on paxil 20 mg for years, however recently reports worsening anxiety in context of increased psychosocial stressors and she has been feeling overwhelmed, has been neglecting her self care and not engaging in adaptive coping skills. Pt is voluntary for treatment. She reports she has not had her paxil in the ED, has not taken it since Thursday, noticed some withdrawal sx. Says her ?overall personal goal is to live life with as few medications as possible? and says she wants to find other ways to deal with the anxiety. However, pt acknowledges that paxil 20 mg has been helpful in keeping her stable over the years. Has remote hx of OP psych services, no hx of IPLOC, PHP, or CCS. Discussed that anxiety is a chronic condition and she may not only benefit from continuing paxil but from increasing the dose, as she is on a low dose and reports issues with anxiety, mood stability, and sleep. Pt prefers to stay on paxil, as opposed to switch to a different SSRI, due to past benefit for almost 20 years. Will re-start paxil at 20 mg and increase to 30 mg over course of hospitalization. Pt denies alcohol withdrawal sx. Will order CIWA for precaution and place consult to recovery team. 05/22: Pt reports positive benefit on PRN trazodone for sleep. She is back on paxil 20 mg, will increase to 30 mg QHS this evening to target sx of anxiety, as pt has been increasingly anxious with poor sleep, impulsivity, and overwhelmed. 05/23: Pt reports she is tolerating paxil 30 mg well, denies SE. Doing well with groups, stable. Looking forward to discharge. Denies SI/SIB and says she feels safe. Met with Recovery team, which was beneficial. Monitor response to medications. Monitor for safety in the milieu. Discharge on stabilization. Patient seen. Chart reviewed. Discussed with team. Obtain collateral contact info?as needed I spent minutes with the patient and/or on the patient floor today, greater than?50% of which was spent counseling/coordinating care. Reason for contiued inpatient stay Substantial Risk for: med/psych decompensation
[2021-05-23] MEDS: PARoxetine HCL 30 MG TABLET PO (20:40)
[2021-05-23] MEDS: hydrOXYzine HCL 25 MG TABLET PO (20:41)
[2021-05-23] MEDS: traZODone HCL 50 MG TABLET PO (20:41)
--- NOTE | 2021-05-23 22:10 | PM.DS ---
DS: Providers Provider Date of Service: 05/21/21 Date of admission: 05/21/21 12:55 Date of discharge: 05/24/21 Primary care physician: Unknown Physician Admitting clinician: Monet Carrasquillo Attending physician on admission: Brody Chu Attending physician on discharge: Brody Chu Discharging clinician: Monet Carrasquillo DS: Diagnosis Discharge Diagnosis (1) Adjustment disorder with mixed anxiety and depressed mood: Start date: 05/21/21 Status: Acute (2) Alcohol use disorder, moderate, dependence: Start date: 05/21/21 Status: Acute (3) PÉREZ (generalized anxiety disorder): Start date: 05/21/21 Status: Acute DS: Summary Hospital Course Hospital Course: Pt is a 60 y.o. female who presented to [facility] 05/18/21 due to suicide attempt, took 30 pills of 20 mg of paroxetine 45 minutes before coming to the ED. 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 Her sister, niece, and their two dogs are visiting her and her mother in their small condo. Pt also disclosed increased alcohol use over the pandemic and was inebriated at the time of the OD. BAL 161 on arrival to ED. Tox screen is otherwise negative. Per CARE team balwinder, prior to the OD, pt had a negative interaction with her niece while they were cleaning up after dinner, which resulted in her niece snapping at her. She reported that she went into her room, saw the bottle of her medications and impulsively took them.? I evaluated the pt on admission and she reported she overdosed after ?a long day,? had been cooking and said she was arguing with her sister and her niece told her ?you dont talk to my mother in that tone of voice.? Says she remembers taking the paxil but her mom says she also left a suicide note; pt states she has ?no recollection of putting a purposeful thought to anything in that moment, i?m so surprised I did what I did.? Denies hx of previous self harm behaviors or suicide attempts. 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 as she says her peers all started announcing their retirements and she is ?afraid for my own future.? Says she has some financial stress. Also reports feeling ?concerned with the country? and worries that ?politicians tread on the basic foundations of our country, it?s frightening to me, all this stuff built up.? Sleep has been poor, attributes this to anxiety, sleeps 4-6 hours at night, energy is ?okay? during the day, feels ?drained'' at night. Reports long hx of difficulty with sleep, ?I have a hard time turning my brain off at night.? Appetite is okay. Denies hx of impulsivity or risk taking behaviors. No hx of manic or hypomanic episodes endorsed. No psychotic sx. Currently denies SI/SIB upon inquiry and says she feels safe, remorseful for her overdose. Denies issues with anger or agitation. Pt has been stable on paxil 20 mg for years, however presents with worsening anxiety in context of increased psychosocial stressors, has been neglecting her self care, and not engaging in adaptive coping skills. Discussed that anxiety is a chronic condition and she may not only benefit from continuing paxil but from increasing the dose, as she is on a low dose and reports residual issues with anxiety, mood stability, and sleep. Discussed option of trialing a different antidepressant, however pt prefers to stay on paxil due to past benefit for almost 20 years. Will re-start paxil at 20 mg and increase to 30 mg over course of hospitalization. Pt denies alcohol withdrawal sx and met with the hospital recovery team. Time spent discussing smoking cessation with patient: 3 to 10 minutes Status at Discharge Cognitive/behavioral status at discharge: Pt is calm, cooperative, engaged in treatment and stable for discharge. She reports feeling safe, denies SI/SIB upon inquiry. Functional status at discharge: independent ambulation Overall status at discharge: patient is back to baseline Time Spent with Patient Time attestation: Total time spent providing and/or coordinating discharge services: Discharge coordination time: Less than 30 minutes Quality: Stroke Does the patient have a stroke diagnosis?: No Reason for No Anti-thrombotic at DC: Not indicated Reason for No Anticoagulant at DC: Not indicated Reason Not Initiating IV-Tpa: Not indicated Reason for No Anti-thrombotic by Day Two: Not indicated Reason for No Statin at DC: Not indicated Physical Exam Vital Signs: Vital Signs: Last Vital Signs Temp 97.6 F 05/23/21 18:00 Pulse 80 05/23/21 18:00 Resp 14 05/23/21 18:00 BP 112/69 05/23/21 18:00 Pulse Ox 98 05/23/21 18:00 BMI result Body Mass Index 30.6 Psych: Other: A&O. Well groomed, good hygiene, overweight. Good eye contact, attentive. No Tics or Tremors. No abnormal involuntary movements. Calm, cooperative, engaged. Non-pressured speech, spontaneous with regular rate and rhythm, normal volume and prosody. No prolonged speech latency or dysarthria. Mood is ?good,? affect is euthymic. Denies SI/SIB/HI upon inquiry. Denies A/VH or delusional thought content. Thoughts are coherent, organized, future oriented. No known cognitive or memory impairment. Insight/ Judgment fair and adequate. DS: Data Data Completed and Pending Completed studies during hospitalization [Text1]: CBC, CMP, EKG complete Labs on day of discharge: Iron studies wnl. Discharge Plan Discharge Anticipated Discharge Date/Time: 05/24/21 09:19 Patient Disposition: Home, Self-Care Discharge Diagnosis: PÉREZ, Alcohol Use Disorder Referrals: Destiny Arthur MD [Physician] - 1 Week Discharge Medications: New trazodone 50 mg Tablet 50 mg PO BEDTIME PRN (Reason: Insomnia) Qty: 30 RF: 0 paroxetine HCl 30 mg Tablet 30 mg PO BEDTIME Qty: 30 RF: 0 Discontinued paroxetine HCl 20 mg tablet 1 tab PO DAILY RF: 0 Discharge Orders: Discharge Order (Routine); Ordered 05/24/21 Ordered By: Brody Chu Diet: advance to usual diet Activity on Discharge: As tolerated Stand Alone Forms: Patient Portal Discharge page, Community Support Care Plan Goals: Maintain mood and safe behaviors Take medications as prescribed Continue to pursue safe alcohol use Practice adaptive coping skills Follow up with referral for outpatient therapy Health Concerns: Alcohol use and Mood stability Plan of Treatment: Follow up with your PCP, referral for outpatient therapy regarding above concerns. Take medication as prescribed. Assessment: pt stable future oriented Discharge Date/Time: 05/24/21 13:13
[2021-05-24 09:05] VITALS: BP 132/77; PULSE 81; RESP 16; TEMP 36.2; O2SAT 99
[2021-05-24] MEDS: Folic Acid 1 MG TABLET PO (09:06)
[2021-05-24] MEDS: Thiamine HCL 100 MG TABLET PO (09:06)
--- NOTE | 2021-05-24 13:13 | PC.NURSE ---
Patient is alert, fully oriented, pleasant and cooperative with discharge process. She denies ideation, plan or intent to harm self or others. She denies urges to drink. She reports plan to connect with outpatient therapist and with Danelle. After teaching she denies questions about rxd medications. She denies physical complaint.
== END 2021-05-24 13:13 | disposition home or self-care (01) | DRG 755 ==
LOC: HO.ED 05-19 03:32 → HO.PADLT16 05-21 13:00
PROVIDERS: Physician Assistant; Registered Nurse; Admitting Provider Psychiatry & Neurology Psychiatry; Emergency Provider Emergency Medicine; Visit Provider Psychiatry & Neurology Psychiatry
DX: F43.23 Adjustment disorder with mixed anxiety and depressed mood (principal); R45.851 Suicidal ideations; F41.1 Generalized anxiety disorder; F10.20 Alcohol dependence, uncomplicated; T43.222A Poisoning by selective serotonin reuptake inhibitors, intentional self-harm, initial encounter; Y92.9 Unspecified place or not applicable; Z98.84 Bariatric surgery status; Z79.899 Other long term (current) drug therapy
CPT/HCPCS: 36415; 80053; 80143; 80179; 80307; 82077; 82248; 82607; 82746; 83540; 83735; 84439; 84443; 84702; 85025; 85610; 85730; 87635; 93005; 96360; 99285